=== PATIENT | female | born 1935 | race Caucasian/White ===

== ENCOUNTER 2018-06-28 21:15 | Emergency (ER) | payer MEDICARE ==
[2018-06-28 22:27] LABS: BILIRUBIN,URINE SMALL (NEG); CLARITY,URINE TURBID; COLOR,URINE AMBER; GLUCOSE,URINE NEGATIVE (NEG); NITRITE,URINE NEGATIVE (NEG); PROTEIN,URINE 100 mg/dL (NEG-TRACE)
[2018-06-28 22:34] LABS: WBC,URINE >40 /HPF (0-4)
[2018-06-28 22:35] LABS: BACTERIA,URINE FEW /HPF (0-FEW)
[2018-06-28 22:47] LABS: ADD MAN DIFF? NO; BASO # 0.1 x10^3/uL (0.0-0.2); BASO % 1 % (0-3); EOS # 0.5 x10^3/uL (0.0-0.7); EOS % 5 % (0-3); HEMATOCRIT 41.2 % (36.0-47.0); HEMOGLOBIN 13.5 g/dL (12.0-15.5); LYMPH # 3.1 x10^3/uL (1.0-4.8); LYMPH % 31 % (24-48); MEAN CORPUSCULAR HEMOGLOBIN 25 pg (25-35); MEAN CORPUSCULAR HGB CONC 33 g/dL (31-37); MEAN CORPUSCULAR VOLUME 76 fL (79-100); MONO # 0.6 x10^3/uL (0.0-1.1); MONO % 7 % (0-9); NEUT # 5.6 x10^3uL (1.8-7.7); NEUT % 57 % (31-73); PLATELET COUNT 191 x10^3/uL (140-400); RED CELL DISTRIBUTION WIDTH 18.4 % (11.5-14.5); WHITE BLOOD COUNT 9.9 x10^3/uL (4.0-11.0)
[2018-06-28 23:02] LABS: ANION GAP 11 (6-14); BLOOD UREA NITROGEN 30 mg/dL (7-20); BUN/CREATININE RATIO 30 (6-20); CALCIUM 8.9 mg/dL (8.5-10.1); CARBON DIOXIDE 25 mmol/L (21-32); CHLORIDE 103 mmol/L (98-107); GFR 53.2; GLUCOSE 294 mg/dL (70-99); POTASSIUM 3.8 mmol/L (3.5-5.1); SODIUM 139 mmol/L (136-145)
[2018-06-28] MEDS: IV NORMAL SALINE 500ML BAG 500 ML IV (23:06)
[2018-06-28 23:08] LABS: ALBUMIN 3.1 g/dL (3.4-5.0); ALBUMIN/GLOBULIN RATIO 0.8 (1.0-1.7); ALK PHOS 112 U/L (46-116); ALT (SGPT) 19 U/L (14-59); AST (SGOT) 15 U/L (15-37); TOTAL BILIRUBIN 0.4 mg/dL (0.2-1.0)
== END 2018-06-29 00:45 | disposition home or self-care (01) ==
LOC: ER 06-29 00:45
DX: E86.0 Dehydration (principal); N39.0 Urinary tract infection, site not specified; F03.90 Unspecified dementia, unspecified severity, without behavioral disturbance, psychotic disturbance, mood disturbance, and anxiety; E11.9 Type 2 diabetes mellitus without complications; E78.00 Pure hypercholesterolemia, unspecified; Z88.0 Allergy status to penicillin; Z88.8 Allergy status to other drugs, medicaments and biological substances; Z91.041 Radiographic dye allergy status
CPT/HCPCS: 36415; 80053; 81001; 85025; 96361; 96365; 99284-25; J0690; J7040; P9612

== ENCOUNTER 2019-04-09 12:09 | Inpatient (IN) | payer MEDICARE ==
[~2019-04-09] VITALS: Ht 165.1 cm; Wt 76.7 kg
[~2019-04-09 12:09] MED LIST: ACET500T55 PO; CIPR500T94 PO; CLON0.1T12 PO; DULO30CA2 PO; GLYB5TAB3 PO; INSU100V13 SQ; METF500T16 PO; METO25TA4 PO; OLAN5TAB9 PO; OXYB5TAB7 PO; PRAV20TA2 PO; SERT50TA PO
[2019-04-09] MEDS ORDERED: ONDANSETRON PF 4 MG/2 ML VIAL. IV ONE (12:45)
[2019-04-09] MEDS ORDERED: fentaNYL PF VIAL 100 MCG/2 ML VIAL IV ONE ×2 (12:45→15:30)
[2019-04-09 12:51] LABS: BILIRUBIN,URINE SMALL (NEG); CLARITY,URINE CLEAR; COLOR,URINE AMBER; NITRITE,URINE NEGATIVE (NEG); PH,URINE 5.5; PROTEIN,URINE 100 mg/dL (NEG-TRACE)
[2019-04-09 12:56] LABS: GRANULAR CASTS,URINE OCCASIONAL /HPF; HYALINE CASTS, URINE FEW /HPF; SQUAMOUS EPITHELIAL CELL,UR MOD /LPF
[2019-04-09 12:57] LABS: BACTERIA,URINE 0 /HPF (0-FEW); RBC,URINE OCC /HPF (0-2)
[2019-04-09 13:03] LABS: BASO # 0.1 x10^3/uL (0.0-0.2); BASO % 1 % (0-3); EOS # 0.2 x10^3/uL (0.0-0.7); EOS % 2 % (0-3); HEMATOCRIT 41.7 % (36.0-47.0); HEMOGLOBIN 13.4 g/dL (12.0-15.5); LYMPH # 2.2 x10^3/uL (1.0-4.8); LYMPH % 27 % (24-48); MEAN CORPUSCULAR HEMOGLOBIN 27 pg (25-35); MEAN CORPUSCULAR HGB CONC 32 g/dL (31-37); MEAN CORPUSCULAR VOLUME 83 fL (79-100); MONO # 0.6 x10^3/uL (0.0-1.1); MONO % 7 % (0-9); NEUT # 5.1 x10^3uL (1.8-7.7); NEUT % 63 % (31-73); PLATELET COUNT 194 x10^3/uL (140-400); RED BLOOD COUNT 5.04 x10^6/uL (3.50-5.40); RED CELL DISTRIBUTION WIDTH 15.8 % (11.5-14.5); WHITE BLOOD COUNT 8.1 x10^3/uL (4.0-11.0)
[2019-04-09 13:12] LABS: PROTHROMBIN TIME PATIENT 14.3 SEC (11.7-14.0)
--- NOTE | 2019-04-09 13:14 | EKG ---
[facility] [address] [place] [address] Test Date: 2019-04-09 Test Time: 12:26:50 Pat Name: AALIYAH CROW Department: Room: Gender: F Office Mail Clerk: : 1935 Requested By: ARTUR DELEON Order Number: [id number] Reading MD: Elliot Weaver Measurements Intervals [place] Rate: 83 P: -15 ME: 150 QRS: -59 QRSD: 132 T: -8 QT: 400 QTc: 471 Interpretive Statements SINUS RHYTHM ABNORMAL LEFT AXIS DEVIATION LEFT ANTERIOR FASCICULAR BLOCK RIGHT BUNDLE BRANCH BLOCK BIFASCICULAR BLOCK ABNORMAL ECG Electronically Signed On 05-02-2019 12:05:04 CDT by Elliot Weaver
[2019-04-09 13:15] LABS: CREATININE 0.9 mg/dL (0.6-1.0); GFR 59.9; POTASSIUM 3.9 mmol/L (3.5-5.1)
[2019-04-09 13:22] LABS: ALBUMIN 3.8 g/dL (3.4-5.0); ALBUMIN/GLOBULIN RATIO 1.2 (1.0-1.7); TOTAL BILIRUBIN 0.8 mg/dL (0.2-1.0); TOTAL PROTEIN 7.1 g/dL (6.4-8.2)
--- NOTE | 2019-04-09 13:40 | RAD ---
CHEST AP ONLY Clinical Indication: Code stroke, left arm numbness, seizure Comparison: None. Findings: Portable supine frontal view of the chest was obtained. The cardiomediastinal silhouette is normal. Lungs are clear. There is no pneumothorax but evaluation may be limited with the patient supine. No pleural effusion is appreciated. No acute bone abnormality. Calcific granuloma involves the lateral right upper lung field. Rods are identified involving the upper lumbar spine but are only partially imaged. Degenerative changes are notable involving the lumbar spine. IMPRESSION: No acute cardiopulmonary process. Electronically signed by: Emile Blair MD (04/09/2019 1:37 PM) [id number]
--- NOTE | 2019-04-09 13:42 | RAD ---
Examination: HIP RIGHT 2V WITH PELVIS History: Seizure, hip pain Comparison/Correlation: None Findings: Frontal view pelvis, frontal view right hip, and frog-leg lateral view right hip were obtained. Left hip joint prosthesis is present. Spinal rods involving the low lumbar spine. Laminectomy defects are present involving the very low lumbar spine. Spurring about the right hip is noted. No acute fracture identified. Vascular calcification noted. Impression: No acute process. Consider further evaluation if occult fracture is a persistent concern. Electronically signed by: Emile Blair MD (04/09/2019 1:39 PM) [id number]
--- NOTE | 2019-04-09 13:43 | RAD ---
Examination: KNEE RIGHT 4V History: Right knee pain, seizure Comparison/Correlation: None Findings: Total of 4 images of the right knee were obtained. Right total knee joint prosthesis is present. No loosening. No fracture or bony destruction. Vascular calcification present. Impression: No acute process. Electronically signed by: Emile Blair MD (04/09/2019 1:40 PM) [id number]
--- NOTE | 2019-04-09 13:45 | RAD ---
CT head without contrast dated 04/09/2019. Comparison made to 05/08/2018. CLINICAL INDICATION: Weakness. Seizure. TECHNIQUE: Contiguous axial imaging of the head was performed from skull base to vertex. No contrast administered. One or more of the following individualized dose reduction techniques were utilized for this examination: 1. Automated exposure control 2. Adjustment of the mA and/or kV according to patient size 3. Use of iterative reconstruction technique. FINDINGS: Ventricles and sulci are moderately prominent for age. No midline shift or mass effect. Moderate patchy low density throughout the deep/subcortical periventricular white matter. No hemorrhage or extra-axial collection. Posterior fossa and brainstem unremarkable. Visualized paranasal sinuses and mastoid air cells are clear. Mild mucosal thickening of the ethmoid and sphenoid sinuses. Atherosclerotic calcifications of the parasellar carotids and vertebrobasilar system. IMPRESSION: 1. No evidence of acute intracranial hemorrhage or mass. 2. Moderate chronic small vessel ischemic changes and atrophy, similar to prior study. Electronically signed by: Sagar Wellington MD (04/09/2019 1:42 PM) [id number]
--- NOTE | 2019-04-09 14:56 | PHYS DOC ---
Past Medical History Past Medical History: Dementia, Diabetes-Type II, High Cholesterol, Seizure, UTI Additional Past Medical Histor: DROP FOOT LEFT Past Surgical History: Knee Replacement Additional Past Surgical Histo: BILATERAL KNEE, RIGHT HIP, BACK SX Alcohol Use: None Drug Use: None Adult General Chief Complaint Chief Complaint: WEAKNESS/GENERALIZED HPI HPI Patient is a 83 year old F who presents for gen weakness. She was DC from [facility] rehab yesterday. She is incredibly weak and cannot get around on her own. Her daughter has been taking care of her at home for the last day. She cannot do her ADLs. She also has significant pain and has fallen a couple of times. Denies cp, sob, fevers, cough. Review of Systems Review of Systems Constitutional: Denies fever or chills Eyes: Denies change in visual acuity, redness, or eye pain HENT: Denies nasal congestion or sore throat Respiratory: Denies cough or shortness of breath Cardiovascular: No additional information not addressed in HPI GI: Denies abdominal pain, nausea, vomiting, bloody stools or diarrhea : Denies dysuria or hematuria Musculoskeletal: Denies back pain or joint pain Integument: Denies rash or skin lesions Neurologic: Denies headache, focal weakness or sensory changes All other systems were reviewed and found to be within normal limits, except as documented in this note. Current Medications Current Medications Current Medications Medications (Trade) Dose Ordered Sig/Shreya Start Time Stop Time Status Last Admin Dose Admin Fentanyl Citrate (Fentanyl 2ml Vial) 50 mcg 1X ONCE 04/09/19 12:45 04/09/19 12:56 DC 04/09/19 12:59 50 MCG Ondansetron HCl (Zofran) 4 mg 1X ONCE 04/09/19 12:45 04/09/19 12:46 DC 04/09/19 12:59 4 MG Allergies Allergies Allergies Coded Allergies Type Severity Reaction Last Updated Verified Iodine and Iodide Containing Produc Allergy Intermediate 05/08/18 Yes Penicillins Allergy Intermediate 05/08/18 Yes meperidine Allergy Intermediate 05/08/18 Yes Physical Exam Physical Exam Constitutional: Well developed, well nourished, no acute distress, non-toxic appearance. HENT: Normocephalic, atraumatic, bilateral external ears normal, oropharynx moist, no oral exudates, nose normal. Eyes: PERRLA, EOMI, conjunctiva normal, no discharge. Neck: Normal range of motion, no tenderness, supple, no stridor. Cardiovascular:Heart rate regular rhythm, no murmur Lungs & Thorax: Bilateral breath sounds clear to auscultation Abdomen: Bowel sounds normal, soft, no tenderness, no masses, no pulsatile masses. Skin: Warm, dry, no erythema, no rash. Back: No tenderness, no CVA tenderness. Extremities: No tenderness, no cyanosis, no clubbing, ROM intact, no edema. Neurologic: Alert and oriented X 3, normal motor function, normal sensory function, no focal deficits noted. Psychologic: Affect normal, judgement normal, mood normal. Current Patient Data Vital Signs Vital Signs Date Time Temp Pulse Resp B/P (MAP) Pulse Ox O2 Delivery O2 Flow Rate FiO2 04/09/19 13:00 78 18 98 04/09/19 12:10 97.8 158/86 (110) Room Air 97.8 Lab Values Laboratory Tests Test 04/09/19 12:30 04/09/19 12:45 Urine Collection Type U cath Urine Color Merna Urine Clarity Clear Urine pH 5.5 Urine Specific [place] >=1.030 Urine Protein 100 mg/dL (NEG-TRACE) Urine Glucose (UA) Negative mg/dL (NEG) Urine Ketones (Stick) 40 mg/dL (NEG) Urine Blood Negative (NEG) Urine Nitrite Negative (NEG) Urine Bilirubin Small (NEG) Urine Urobilinogen Dipstick 1.0 mg/dL (0.2 mg/dL) Urine Leukocyte Esterase Small (NEG) Urine RBC Occ /HPF (0-2) Urine WBC 1-4 /HPF (0-4) Urine Squamous Epithelial Cells Mod /LPF Urine Bacteria 0 /HPF (0-FEW) Urine Hyaline Casts Few /HPF Urine Granular Casts Occasional /HPF Urine Mucus Mod /LPF White Blood Count 8.1 x10^3/uL (4.0-11.0) Red Blood Count 5.04 x10^6/uL (3.50-5.40) Hemoglobin 13.4 g/dL (12.0-15.5) Hematocrit 41.7 % (36.0-47.0) Mean Corpuscular Volume 83 fL (79-100) Mean Corpuscular Hemoglobin 27 pg (25-35) Mean Corpuscular Hemoglobin Concent 32 g/dL (31-37) Red Cell Distribution Width 15.8 % (11.5-14.5) H Platelet Count 194 x10^3/uL (140-400) Neutrophils (%) (Auto) 63 % (31-73) Lymphocytes (%) (Auto) 27 % (24-48) Monocytes (%) (Auto) 7 % (0-9) Eosinophils (%) (Auto) 2 % (0-3) Basophils (%) (Auto) 1 % (0-3) Neutrophils # (Auto) 5.1 x10^3uL (1.8-7.7) Lymphocytes # (Auto) 2.2 x10^3/uL (1.0-4.8) Monocytes # (Auto) 0.6 x10^3/uL (0.0-1.1) Eosinophils # (Auto) 0.2 x10^3/uL (0.0-0.7) Basophils # (Auto) 0.1 x10^3/uL (0.0-0.2) Prothrombin Time 14.3 SEC (11.7-14.0) H Prothrombin Time INR 1.1 (0.8-1.1) Sodium Level 143 mmol/L (136-145) Potassium Level 3.9 mmol/L (3.5-5.1) Chloride Level 104 mmol/L (98-107) Carbon Dioxide Level 23 mmol/L (21-32) Anion Gap 16 (6-14) H Blood Urea Nitrogen 21 mg/dL (7-20) H Creatinine 0.9 mg/dL (0.6-1.0) Estimated GFR (Cockcroft-Gault) 59.9 BUN/Creatinine Ratio 23 (6-20) H Glucose Level 118 mg/dL (70-99) H Calcium Level 10.0 mg/dL (8.5-10.1) Total Bilirubin 0.8 mg/dL (0.2-1.0) Aspartate Amino Transferase (AST) 16 U/L (15-37) Alanine Aminotransferase (ALT) 20 U/L (14-59) Alkaline Phosphatase 81 U/L (46-116) Troponin I Quantitative < 0.017 ng/mL (0.000-0.055) OH-Dsp-L-Type Natriuretic Peptide 345 pg/mL (0-449) Total Protein 7.1 g/dL (6.4-8.2) Albumin 3.8 g/dL (3.4-5.0) Albumin/Globulin Ratio 1.2 (1.0-1.7) Laboratory Tests 04/09/19 12:45 Laboratory Tests 04/09/19 12:45 EKG EKG [] Radiology/Procedures Radiology/Procedures [] Course & Med Decision Making Course & Med Decision Making Pertinent Labs and Imaging studies reviewed. (See chart for details) 83 y/o F presents from home for gen weakness after DC from rehab yesterday. EKG: Sinus rhythm 82 bpm, no ST elev or depr, RBBB Labs are reassuring. Admit for observation. Dragon Disclaimer Dragon Disclaimer This electronic medical record was generated, in whole or in part, using a voice recognition dictation system. Departure Departure Impression: Primary Impression: Weakness Disposition: ADMITTED INPATIENT Admitting Physician: Other Condition: GOOD Referrals: AMIRA VERONICA MD (PCP) ARTUR DELEON MD April 09, 2019 14:56
[2019-04-09] MEDS ORDERED: DOCUSATE SODIUM 100 MG CAPSULE. PO PRN (15:15)
[2019-04-09] MEDS ORDERED: HYDROmorphone 2 MG/ML VIAL IV PRN (15:15)
[2019-04-09] MEDS ORDERED: ALBUTEROL SULFATE 2.5 MG/3 ML NEBU. NEB PRN (15:15)
[2019-04-09] MEDS ORDERED: ACETAMINOPHEN 325 MG TABLET. PO PRN (15:15)
[2019-04-09] MEDS ORDERED: DEXTROSE 50% 25 GM / 50ML DISP.SYRIN. IV PRN (15:15)
[2019-04-09] MEDS ORDERED: ONDANSETRON PF 4 MG/2 ML VIAL. IV PRN (15:15)
[2019-04-09] MEDS ORDERED: LORazepam 0.5 MG TABLET PO PRN (15:15)
[2019-04-09] MEDS ORDERED: ZOLPIDEM 5 MG TABLET. PO PRN (15:15)
[2019-04-09] MEDS ORDERED: guaiFENesin ORAL 200 MG/10 ML LIQUID. PO PRN (15:15)
[2019-04-09] MEDS ORDERED: ACETAMINOPHEN 500 MG TABLET PO PRN (15:30)
[2019-04-09] MEDS ORDERED: ENOXAPARIN 40 MG/0.4 ML SYRINGE. SQ SCH (16:00)
[2019-04-09] MEDS ORDERED: INSULIN LISPRO 300 UNITS/3 ML INSULN.PEN. SQ SCH (17:00)
[2019-04-09] MEDS ORDERED: C.DIFF MED SCREEN BY RX. MC ONE (18:15)
[2019-04-09 19:00] VITALS: BP 145/66
[2019-04-09] MEDS ORDERED: MENT118G TP (19:17)
[2019-04-09] MEDS ORDERED: LACT1CAP PO (19:17)
[2019-04-09] MEDS ORDERED: CIPR500T PO (19:17)
[2019-04-09] MEDS ORDERED: LISI10TA2 PO (19:17)
[2019-04-09] MEDS ORDERED: LEVE500T56 PO (19:17)
[2019-04-09] MEDS ORDERED: VIT1TABL32 PO (19:17)
[2019-04-09] MEDS ORDERED: INSU100I13 SQ (19:17)
[2019-04-09] MEDS ORDERED: POLY17PO29 PO (19:17)
--- NOTE | 2019-04-09 19:32 | NUR ---
Pt arrived via gurney with ED transport. A&O X4, VSS. Pt able to move to the bed on her own with very little assistance. Completed admission assessment. Meal tray ordered. Call light within reach. Family at bedside. Will continue to monitor.
--- NOTE | 2019-04-09 20:53 | PDOC1 ---
History and Physical Date of Admission Date of Admission 04/09/2019 Identification/Chief Complaint Chief Complaint Weakness Problems: (1) Weakness Source Source: Caregiver, Chart review, Patient History of Present Illness History of Present Illness Patient is an 83-year-old female with past medical history of dementia who was recently discharged from a rehabilitation facility apparently 2 days ago and was brought by her daughter who reported not being able to care for the mother and reporting that she was not herself. no neurological deficits were evident during my encounter patient is pleasantly laying in the stretcher in no acute distress. History is not relieable since the patient is a poor historian. We will admit for PT eval and possible placement. She denies headache blurred vision no slurred speech, no motor or sensory deficit. she does compalin of feeling cold. no nausea or vomiting no abdominal pain reported, she denies urinary symptoms. ER history as follows: Patient is a 83 year old F who presents for gen weakness. She was DC from [facility] rehab yesterday. She is incredibly weak and cannot get around on her own. Her daughter has been taking care of her at home for the last day. She cannot do her ADLs. She also has significant pain and has fallen a couple of times. Denies cp, sob, fevers, cough. Past Medical History Cardiovascular: HTN Pulmonary: No pertinent hx CENTRAL NERVOUS SYSTEM: Dementia GI: No pertinent hx Heme/Onc: No pertinent hx Hepatobiliary: No pertinent hx Psych: No pertinent hx Rheumatologic: No pertinent hx Infectious disease: Other Past Surgical History Past Surgical History: No pertinent history Family History Family History: No Significant Social History ALCOHOL: none Drugs: None Current Problem List Problem List Problems Medical Problems: (1) Weakness Status: Acute Current Medications Current Medications Current Medications Medications (Trade) Dose Ordered Sig/Shreya Start Time Stop Time Status Last Admin Dose Admin Acetaminophen (Tylenol) 500 mg PRN Q6HRS PRN 04/09/19 15:30 Albuterol Sulfate (Ventolin Neb Soln) 2.5 mg PRN Q4HRS PRN 04/09/19 15:15 Atorvastatin Calcium (Lipitor) 5 mg QHS 04/09/19 21:00 Dextrose (Dextrose 50%-Water Syringe) 12.5 gm PRN Q15MIN PRN 04/09/19 15:15 Docusate Sodium (Colace) 100 mg PRN BID PRN 04/09/19 15:15 Duloxetine HCl (Cymbalta) 30 mg DAILY 04/10/19 09:00 Enoxaparin Sodium (Lovenox 40mg Syringe) 40 mg DAILY 04/09/19 16:00 04/09/19 18:24 40 MG Fentanyl Citrate (Fentanyl 2ml Vial) 50 mcg 1X ONCE 04/09/19 15:30 04/09/19 15:31 DC Guaifenesin (Robitussin) 200 mg PRN Q4HRS PRN 04/09/19 15:15 Hydromorphone HCl (Dilaudid) 1 mg PRN Q2HRS PRN 04/09/19 15:15 04/09/19 15:31 1 MG Insulin Glargine (Lantus) 70 units DAILY 04/10/19 09:00 Insulin Human Lispro (HumaLOG) 0-7 UNITS TIDWMEALS 04/09/19 17:00 Lorazepam (Ativan) 0.5 mg PRN Q4HRS PRN 04/09/19 15:15 Metoprolol Tartrate (Lopressor) 12.5 mg BID 04/09/19 21:00 Olanzapine (ZyPREXA) 2.5 mg QHS 04/09/19 21:00 Ondansetron HCl (Zofran) 4 mg PRN Q4HRS PRN 04/09/19 15:15 Pharmacy Consult (C.diff Med Screen By Rx) 1 each 1X ONCE 04/09/19 18:15 04/09/19 18:16 UNV Sertraline HCl (Zoloft) 50 mg QHS 04/09/19 21:00 Zolpidem Tartrate (Ambien) 5 mg PRN QHS PRN 04/09/19 15:15 Allergies Allergies Allergies Coded Allergies Type Severity Reaction Last Updated Verified Iodine and Iodide Containing Produc Allergy Intermediate 05/08/18 Yes Penicillins Allergy Intermediate 05/08/18 Yes meperidine Allergy Intermediate 05/08/18 Yes ROS Review of System CONSTITUTIONAL: No fever or chills EYES: No recent changes SKIN: No rash or itching CARDIOVASCULAR: No chest pain, syncope, palpitations, or edema RESPIRATORY: No SOB or cough GASTROINTESTINAL: No nausea, vomiting or abdominal pain NEUROLOGICAL: No headaches or weakness ENDOCRINE: No cold or heat intolerance GENITOURINARY: No urgency or frequency of urination MUSCULOSKELETAL: No back pain or joint pain LYMPHATICS: No enlarged lymph nodes PSYCHIATRIC: No anxiety or depression Unreliable Physical Exam Physical Exam GEN.: No apparent distress. Alert and oriented. HEENT: Head is normocephalic, atraumatic NECK: Supple. LUNGS: Clear to auscultation. HEART: RRR, S1, S2 present. systolic murmur with no radaition to carotids 2/6 intensity Peripheral pulses intact ABDOMEN: Soft, nontender. Positive bowel sounds. EXTREMITIES: Without any cyanosis. NEUROLOGIC: Normal speech, normal tone PSYCHIATRIC: Normal affect, normal mood. SKIN: No ulcerations Vitals Vitals Vital Signs Date Time Temp Pulse Resp B/P (MAP) Pulse Ox O2 Delivery O2 Flow Rate FiO2 04/09/19 19:24 Room Air 04/09/19 17:19 96 04/09/19 16:00 79 20 04/09/19 12:10 97.8 158/86 (110) 97.8 Labs Labs Laboratory Tests Test 04/09/19 12:30 04/09/19 12:45 04/09/19 17:09 Urine Collection Type U cath Urine Color Merna Urine Clarity Clear Urine pH 5.5 Urine Specific [place] >=1.030 Urine Protein 100 mg/dL (NEG-TRACE) Urine Glucose (UA) Negative mg/dL (NEG) Urine Ketones (Stick) 40 mg/dL (NEG) Urine Blood Negative (NEG) Urine Nitrite Negative (NEG) Urine Bilirubin Small (NEG) Urine Urobilinogen Dipstick 1.0 mg/dL (0.2 mg/dL) Urine Leukocyte Esterase Small (NEG) Urine RBC Occ /HPF (0-2) Urine WBC 1-4 /HPF (0-4) Urine Squamous Epithelial Cells Mod /LPF Urine Bacteria 0 /HPF (0-FEW) Urine Hyaline Casts Few /HPF Urine Granular Casts Occasional /HPF Urine Mucus Mod /LPF White Blood Count 8.1 x10^3/uL (4.0-11.0) Red Blood Count 5.04 x10^6/uL (3.50-5.40) Hemoglobin 13.4 g/dL (12.0-15.5) Hematocrit 41.7 % (36.0-47.0) Mean Corpuscular Volume 83 fL (79-100) Mean Corpuscular Hemoglobin 27 pg (25-35) Mean Corpuscular Hemoglobin Concent 32 g/dL (31-37) Red Cell Distribution Width 15.8 % (11.5-14.5) Platelet Count 194 x10^3/uL (140-400) Neutrophils (%) (Auto) 63 % (31-73) Lymphocytes (%) (Auto) 27 % (24-48) Monocytes (%) (Auto) 7 % (0-9) Eosinophils (%) (Auto) 2 % (0-3) Basophils (%) (Auto) 1 % (0-3) Neutrophils # (Auto) 5.1 x10^3uL (1.8-7.7) Lymphocytes # (Auto) 2.2 x10^3/uL (1.0-4.8) Monocytes # (Auto) 0.6 x10^3/uL (0.0-1.1) Eosinophils # (Auto) 0.2 x10^3/uL (0.0-0.7) Basophils # (Auto) 0.1 x10^3/uL (0.0-0.2) Prothrombin Time 14.3 SEC (11.7-14.0) Prothromb Time International Ratio 1.1 (0.8-1.1) Sodium Level 143 mmol/L (136-145) Potassium Level 3.9 mmol/L (3.5-5.1) Chloride Level 104 mmol/L (98-107) Carbon Dioxide Level 23 mmol/L (21-32) Anion Gap 16 (6-14) Blood Urea Nitrogen 21 mg/dL (7-20) Creatinine 0.9 mg/dL (0.6-1.0) Estimated GFR (Cockcroft-Gault) 59.9 BUN/Creatinine Ratio 23 (6-20) Glucose Level 118 mg/dL (70-99) Calcium Level 10.0 mg/dL (8.5-10.1) Total Bilirubin 0.8 mg/dL (0.2-1.0) Aspartate Amino Transf (AST/SGOT) 16 U/L (15-37) Alanine Aminotransferase (ALT/SGPT) 20 U/L (14-59) Alkaline Phosphatase 81 U/L (46-116) Troponin I Quantitative < 0.017 ng/mL (0.000-0.055) RD-Cdi-P-Type Natriuretic Peptide 345 pg/mL (0-449) Total Protein 7.1 g/dL (6.4-8.2) Albumin 3.8 g/dL (3.4-5.0) Albumin/Globulin Ratio 1.2 (1.0-1.7) Glucose (Fingerstick) 91 mg/dL (70-99) Laboratory Tests Test 04/09/19 12:30 04/09/19 12:45 04/09/19 17:09 Urine Collection Type U cath Urine Color Merna Urine Clarity Clear Urine pH 5.5 Urine Specific [place] >=1.030 Urine Protein 100 mg/dL (NEG-TRACE) Urine Glucose (UA) Negative mg/dL (NEG) Urine Ketones (Stick) 40 mg/dL (NEG) Urine Blood Negative (NEG) Urine Nitrite Negative (NEG) Urine Bilirubin Small (NEG) Urine Urobilinogen Dipstick 1.0 mg/dL (0.2 mg/dL) Urine Leukocyte Esterase Small (NEG) Urine RBC Occ /HPF (0-2) Urine WBC 1-4 /HPF (0-4) Urine Squamous Epithelial Cells Mod /LPF Urine Bacteria 0 /HPF (0-FEW) Urine Hyaline Casts Few /HPF Urine Granular Casts Occasional /HPF Urine Mucus Mod /LPF White Blood Count 8.1 x10^3/uL (4.0-11.0) Red Blood Count 5.04 x10^6/uL (3.50-5.40) Hemoglobin 13.4 g/dL (12.0-15.5) Hematocrit 41.7 % (36.0-47.0) Mean Corpuscular Volume 83 fL (79-100) Mean Corpuscular Hemoglobin 27 pg (25-35) Mean Corpuscular Hemoglobin Concent 32 g/dL (31-37) Red Cell Distribution Width 15.8 % (11.5-14.5) Platelet Count 194 x10^3/uL (140-400) Neutrophils (%) (Auto) 63 % (31-73) Lymphocytes (%) (Auto) 27 % (24-48) Monocytes (%) (Auto) 7 % (0-9) Eosinophils (%) (Auto) 2 % (0-3) Basophils (%) (Auto) 1 % (0-3) Neutrophils # (Auto) 5.1 x10^3uL (1.8-7.7) Lymphocytes # (Auto) 2.2 x10^3/uL (1.0-4.8) Monocytes # (Auto) 0.6 x10^3/uL (0.0-1.1) Eosinophils # (Auto) 0.2 x10^3/uL (0.0-0.7) Basophils # (Auto) 0.1 x10^3/uL (0.0-0.2) Prothrombin Time 14.3 SEC (11.7-14.0) Prothromb Time International Ratio 1.1 (0.8-1.1) Sodium Level 143 mmol/L (136-145) Potassium Level 3.9 mmol/L (3.5-5.1) Chloride Level 104 mmol/L (98-107) Carbon Dioxide Level 23 mmol/L (21-32) Anion Gap 16 (6-14) Blood Urea Nitrogen 21 mg/dL (7-20) Creatinine 0.9 mg/dL (0.6-1.0) Estimated GFR (Cockcroft-Gault) 59.9 BUN/Creatinine Ratio 23 (6-20) Glucose Level 118 mg/dL (70-99) Calcium Level 10.0 mg/dL (8.5-10.1) Total Bilirubin 0.8 mg/dL (0.2-1.0) Aspartate Amino Transf (AST/SGOT) 16 U/L (15-37) Alanine Aminotransferase (ALT/SGPT) 20 U/L (14-59) Alkaline Phosphatase 81 U/L (46-116) Troponin I Quantitative < 0.017 ng/mL (0.000-0.055) VN-Pmd-Q-Type Natriuretic Peptide 345 pg/mL (0-449) Total Protein 7.1 g/dL (6.4-8.2) Albumin 3.8 g/dL (3.4-5.0) Albumin/Globulin Ratio 1.2 (1.0-1.7) Glucose (Fingerstick) 91 mg/dL (70-99) VTE Prophylaxis Ordered VTE Prophylaxis Devices: Yes VTE Pharmacological Prophylaxi: Yes Assessment/Plan Assessment/Plan unsteady gait unable to care for herself advanced age family requesting placement essential hypertension dyslipidemia dm tyupe 2 insulin requring. Plan: will request PT eval will reassess in the am resume home meds further recommendations based on clinical course. accucheks ac and hs DVt prophylaxis: SAUNDRA PENNY MD April 09, 2019 20:53
[2019-04-09] MEDS: METOPROLOL TART IMMED RELEASE 25 MG TABLET. PO SCH (21:00)
--- NOTE | 2019-04-09 21:05 | NUR ---
Dr. Mccauley notified of pt's admission and orders rcvd to restart current home medications. Pt resting in bed, will continue to monitor.
[2019-04-09] MEDS ORDERED: METHYL SALICYLATE/MENTHOL TOPICAL OINTMENT 29GM TUBE. TP PRN (21:15)
[2019-04-09] MEDS: levETIRAcetam 500 MG TABLET PO SCH (22:09)
[2019-04-09] MEDS: OLANZapine 2.5 MG TABLET PO SCH (22:09)
[2019-04-09] MEDS: SERTRALINE 50 MG TABLET. PO SCH (22:10)
[2019-04-09] MEDS: ATORVASTATIN CALCIUM 10 MG TABLET. PO SCH (22:10)
[2019-04-09] MEDS: MULTIVITAMIN I-VITE TABLET. PO SCH (22:11)
[2019-04-09] MEDS ORDERED: INSULIN LISPRO 300 UNITS/3 ML INSULN.PEN. SQ ONE (22:15)
[2019-04-09] MEDS: INSULIN GLARGINE 300 UNITS/3 ML INSULN.PEN. SQ SCH (22:15)
[2019-04-09 23:00] VITALS: BP 121/84
[2019-04-10 03:00] VITALS: BP 120/89
--- NOTE | 2019-04-10 04:30 | NUR ---
Purewick external catheter placed at this time, pt tolerated well and will continue to monitor.
[2019-04-10 07:00] VITALS: BP 149/66
--- NOTE | 2019-04-10 08:29 | PDOC ---
Provider Note Provider Note vss, labs ok, in for placement- check a1c, rest of meds same AMIRA VERONICA MD April 10, 2019 08:29
[2019-04-10] MEDS ORDERED: INSULIN GLARGINE 300 UNITS/3 ML INSULN.PEN. SQ SCH (09:00)
[2019-04-10] MEDS ORDERED: CIPROFLOXACIN HCL 250 MG TABLET. PO SCH (09:00)
[2019-04-10] MEDS: POLYETHYLENE GLYCOL 3350 17 GM PACKET. PO SCH (09:00)
[2019-04-10] MEDS: DULoxetine HCL 30 MG CAPSULE.DR PO SCH (09:42)
[2019-04-10] MEDS: LACTOBACILLUS RHAMNOSUS GG 1 CAPSULE. PO SCH (09:42)
[2019-04-10] MEDS: levETIRAcetam 500 MG TABLET PO SCH ×2 (09:42→21:21)
[2019-04-10] MEDS: LISINOPRIL 10 MG TABLET PO SCH (09:43)
[2019-04-10] MEDS: METOPROLOL TART IMMED RELEASE 25 MG TABLET. PO SCH ×2 (09:45→21:20)
--- NOTE | 2019-04-10 09:45 | NUR ---
wound care patient seen per wound care consult. patient has redness in bilateral groins/upper thighs- recommendations of Calazime cream, prn. applied Calazime cream at this time. patient assessed from head to toe- no wounds noted at this time. wound care is signing off- please re-consult wound care if the integumentary assessment changes. notified CHELSEA Black.
[2019-04-10 11:00] VITALS: BP 130/62
[2019-04-10 15:00] VITALS: BP 134/56
--- NOTE | 2019-04-10 15:46 | NUR ---
SW following for discharge planning. Discussed with RN, pt is from home with daughter, has had Michelle in the past and was recently at [facility]. Per Michelle TRAN, Lo, pt has also been to [facility]. OT recommending SNU, SW awaiting PT recommendation. SW to contact pt's daughter to discuss discharge planning. SW will continue to follow.
[2019-04-10 19:20] VITALS: BP 101/46
[2019-04-10] MEDS: MULTIVITAMIN I-VITE TABLET. PO SCH (21:19)
[2019-04-10] MEDS: ATORVASTATIN CALCIUM 10 MG TABLET. PO SCH (21:21)
[2019-04-10] MEDS: SERTRALINE 50 MG TABLET. PO SCH (21:21)
[2019-04-10] MEDS: OLANZapine 2.5 MG TABLET PO SCH (21:21)
[2019-04-10] MEDS: INSULIN GLARGINE 300 UNITS/3 ML INSULN.PEN. SQ SCH (21:29)
[2019-04-10 23:27] VITALS: BP 128/56
[2019-04-11 03:13] VITALS: BP 120/43
[2019-04-11 07:00] VITALS: BP 148/64
--- NOTE | 2019-04-11 07:55 | PDOC ---
Provider Note Provider Note vss, no temp, glucose up so will inc lantus- placement pending AMIRA VERONICA MD April 11, 2019 07:54
[2019-04-11] MEDS ORDERED: INSULIN GLARGINE 300 UNITS/3 ML INSULN.PEN. SQ ONE (08:00)
[2019-04-11] MEDS: METOPROLOL TART IMMED RELEASE 25 MG TABLET. PO SCH ×2 (08:41→20:10)
[2019-04-11] MEDS: LACTOBACILLUS RHAMNOSUS GG 1 CAPSULE. PO SCH (08:41)
[2019-04-11] MEDS: POLYETHYLENE GLYCOL 3350 17 GM PACKET. PO SCH (08:42)
[2019-04-11] MEDS: LISINOPRIL 10 MG TABLET PO SCH (08:42)
[2019-04-11] MEDS: DULoxetine HCL 30 MG CAPSULE.DR PO SCH (08:44)
[2019-04-11] MEDS: levETIRAcetam 500 MG TABLET PO SCH ×2 (08:44→20:10)
[2019-04-11 11:00] VITALS: BP 126/76
[2019-04-11 11:17] LABS: HEMOGLOBIN A1C 7.9 % (4.8-5.6)
--- NOTE | 2019-04-11 14:11 | NUR ---
SW following for discharge planning. Discussed with RN, SW left voicemail for pt's daughter, Sarah ([phone]), requesting a call back. SW requested RN to notify SW when family came by to see pt. SANDY will continue to follow.
[2019-04-11 15:00] VITALS: BP 122/48
--- NOTE | 2019-04-11 15:27 | NUR ---
SW following for discharge planning. Pt's daughter returned SW phone call. Pt's daughter visited [facility] last night and is looking at [facility] tomorrow (04/12/19). Pt had discharged from [facility] on 12/12/18 and was at [facility] from 03/26/19 to 04/08/19. PT/OT recommending SNU. SW trying to determine if pt has any SNU days left. SW will continue to follow.
[2019-04-11 19:00] VITALS: BP 154/68
[2019-04-11] MEDS: ATORVASTATIN CALCIUM 10 MG TABLET. PO SCH (20:09)
[2019-04-11] MEDS: SERTRALINE 50 MG TABLET. PO SCH (20:09)
[2019-04-11] MEDS: MULTIVITAMIN I-VITE TABLET. PO SCH (20:09)
[2019-04-11] MEDS: OLANZapine 2.5 MG TABLET PO SCH (20:10)
[2019-04-11] MEDS ORDERED: INSULIN GLARGINE 300 UNITS/3 ML INSULN.PEN. SQ SCH (21:00)
[2019-04-11 23:00] VITALS: BP 132/69
[2019-04-12 03:00] VITALS: BP 146/67
[2019-04-12 07:00] VITALS: BP 177/69
[2019-04-12] MEDS: POLYETHYLENE GLYCOL 3350 17 GM PACKET. PO SCH (09:29)
[2019-04-12] MEDS: levETIRAcetam 500 MG TABLET PO SCH ×2 (09:29→20:49)
[2019-04-12] MEDS: LISINOPRIL 10 MG TABLET PO SCH (09:32)
[2019-04-12] MEDS: LACTOBACILLUS RHAMNOSUS GG 1 CAPSULE. PO SCH (09:32)
[2019-04-12] MEDS: METOPROLOL TART IMMED RELEASE 25 MG TABLET. PO SCH ×2 (09:33→20:49)
[2019-04-12] MEDS: DULoxetine HCL 30 MG CAPSULE.DR PO SCH (09:33)
[2019-04-12 11:00] VITALS: BP 124/68
[2019-04-12 15:00] VITALS: BP 125/54
--- NOTE | 2019-04-12 18:50 | NUR ---
1650 - Dinner time blood sugar 305, no sliding scale orders available, Dr Mccauley paged. 1849 - Dr Mccauley called back, orders received for Lantus 24 units now and then again at bedtime plus Lantus 10 units at lunch starting tomorrow.
[2019-04-12 19:00] VITALS: BP 132/56
[2019-04-12] MEDS: ATORVASTATIN CALCIUM 10 MG TABLET. PO SCH (20:48)
[2019-04-12] MEDS: MULTIVITAMIN I-VITE TABLET. PO SCH (20:48)
[2019-04-12] MEDS: SERTRALINE 50 MG TABLET. PO SCH (20:49)
[2019-04-12] MEDS: OLANZapine 2.5 MG TABLET PO SCH (20:49)
[2019-04-12] MEDS: INSULIN GLARGINE 300 UNITS/3 ML INSULN.PEN. SQ SCH (20:55)
[2019-04-12] MEDS ORDERED: INSULIN GLARGINE 300 UNITS/3 ML INSULN.PEN. SQ SCH (21:00)
[2019-04-12 23:00] VITALS: BP 146/67
--- NOTE | 2019-04-12 23:12 | PN ---
DATE: 04/12/2019 SUBJECTIVE: The patient is awake, alert, has just finished breakfast. Denies any significant complaints. Medications were reviewed. OBJECTIVE: VITAL SIGNS: Stable. She is afebrile. CHEST: Clear. HEART: Regular. ABDOMEN: Benign. LABORATORY DATA: Sugar this morning was 67, have been anywhere from 130-250 in the last 24 hours. Hip and pelvic fractures were negative on admission. Head CT showed only chronic changes on admission. Chest x-ray on admission showed no acute cardiopulmonary process. Right knee films showed no acute process in addition. Placement is planned at this point at the time of discharge and is underway for the same. Lantus was increased to 30 last night and I will back off a little bit because of the lower blood sugar this morning. IMPRESSION: 1. Dementia. 2. Unsteady gait with history of falls. 3. Family requesting placement. 4. Type 2 diabetes, insulin requiring. 5. Hypertension. PLAN: Continue present therapy other than backing off of Lantus just a little bit, otherwise, same with placement at the time of discharge. ROSA ESPOSITO MD DR: AIXA/chip JOB#: [id number] / [id number]
[2019-04-13 03:00] VITALS: BP 142/63
[2019-04-13 07:00] VITALS: BP 176/76
[2019-04-13] MEDS: DULoxetine HCL 30 MG CAPSULE.DR PO SCH (09:00)
[2019-04-13 09:41] LABS: BASO % 1 % (0-3); EOS # 0.4 x10^3/uL (0.0-0.7); EOS % 6 % (0-3); HEMATOCRIT 42.4 % (36.0-47.0); HEMOGLOBIN 13.8 g/dL (12.0-15.5); LYMPH # 1.7 x10^3/uL (1.0-4.8); LYMPH % 26 % (24-48); MEAN CORPUSCULAR HEMOGLOBIN 27 pg (25-35); MEAN CORPUSCULAR HGB CONC 33 g/dL (31-37); MEAN CORPUSCULAR VOLUME 84 fL (79-100); MONO # 0.5 x10^3/uL (0.0-1.1); MONO % 8 % (0-9); NEUT # 3.9 x10^3uL (1.8-7.7); NEUT % 60 % (31-73); PLATELET COUNT 150 x10^3/uL (140-400); RED BLOOD COUNT 5.08 x10^6/uL (3.50-5.40); RED CELL DISTRIBUTION WIDTH 15.8 % (11.5-14.5); WHITE BLOOD COUNT 6.5 x10^3/uL (4.0-11.0)
[2019-04-13 09:46] LABS: CREATININE 0.7 mg/dL (0.6-1.0); GFR 80.1; POTASSIUM 4.1 mmol/L (3.5-5.1)
[2019-04-13] MEDS: POLYETHYLENE GLYCOL 3350 17 GM PACKET. PO SCH (09:46)
[2019-04-13] MEDS: levETIRAcetam 500 MG TABLET PO SCH ×2 (09:47→20:12)
[2019-04-13] MEDS: LACTOBACILLUS RHAMNOSUS GG 1 CAPSULE. PO SCH (09:47)
[2019-04-13] MEDS: METOPROLOL TART IMMED RELEASE 25 MG TABLET. PO SCH ×2 (09:48→20:13)
[2019-04-13] MEDS: LISINOPRIL 10 MG TABLET PO SCH (09:49)
[2019-04-13 11:00] VITALS: BP 162/86
[2019-04-13] MEDS: INSULIN GLARGINE 300 UNITS/3 ML INSULN.PEN. SQ SCH ×2 (13:07→20:52)
[2019-04-13 15:00] VITALS: BP 121/57
[2019-04-13 19:48] VITALS: BP 131/65
[2019-04-13] MEDS: OLANZapine 2.5 MG TABLET PO SCH (20:12)
[2019-04-13] MEDS: MULTIVITAMIN I-VITE TABLET. PO SCH (20:12)
[2019-04-13] MEDS: ATORVASTATIN CALCIUM 10 MG TABLET. PO SCH (20:13)
[2019-04-13] MEDS: SERTRALINE 50 MG TABLET. PO SCH (20:14)
--- NOTE | 2019-04-13 23:15 | PN ---
DATE: 04/13/2019 LOCATION: Room 436. SUBJECTIVE: The patient is awake, alert and pleasant. Once again, denies complaints. OBJECTIVE: VITAL SIGNS: Stable. She is afebrile. Sugars are variable, being anywhere from 86 this morning up to as high as 305 at supper last night. CHEST: Clear. HEART: Regular. ABDOMEN: Benign. NEUROLOGIC: She is pleasantly confused. IMPRESSION: 1. Dementia. 2. Unsteady gait with history of falls. 3. Family requesting placement. 4. Type 2 diabetes, insulin requiring. 5. Hypertension. PLAN: Continue present therapy. We will plan on, at this point in time, placement per social services designee, likely first of the week. ROSA ESPOSITO MD DR: AIXA/chip JOB#: [id number] / [id number]
[2019-04-13 23:18] VITALS: BP 144/56
[2019-04-14 03:35] VITALS: BP 163/77
[2019-04-14 07:00] VITALS: BP 165/65
--- NOTE | 2019-04-14 08:13 | PDOC ---
Provider Note Provider Note vss, no temp- alert , glucose labile awaits placement- lantus added,a1c added AMIRA VERONICA MD April 14, 2019 08:13
--- NOTE | 2019-04-14 09:00 | NUR ---
Pt takes daily Miralax and so far has not had a BM since 04/09. Abdomen is soft, non-tender and Pt denies any discomfort or feeling or constipation. No additional medication needed at this time per Dr Mccauley.
[2019-04-14] MEDS: POLYETHYLENE GLYCOL 3350 17 GM PACKET. PO SCH (09:57)
[2019-04-14] MEDS: metFORMIN 500 MG TABLET PO SCH ×2 (09:58→17:14)
[2019-04-14] MEDS: LACTOBACILLUS RHAMNOSUS GG 1 CAPSULE. PO SCH (09:58)
[2019-04-14] MEDS: LISINOPRIL 10 MG TABLET PO SCH (09:58)
[2019-04-14] MEDS: levETIRAcetam 500 MG TABLET PO SCH ×2 (09:58→21:13)
[2019-04-14] MEDS: DULoxetine HCL 30 MG CAPSULE.DR PO SCH (09:58)
[2019-04-14] MEDS: METOPROLOL TART IMMED RELEASE 25 MG TABLET. PO SCH ×2 (09:59→21:00)
[2019-04-14 11:00] VITALS: BP 108/60
--- NOTE | 2019-04-14 11:12 | NUR ---
SANDY following for discharge planning. Discussed with RN. PT/OT recommending SNU. SANDY spoke with pt's dtr, Sarah this morning, she would like referral sent to [facility] (ph: [phone], fax: [phone]). SANDY phoned and faxed referral, Elana from [facility] will come by to visit pt today, [facility] advising if pt will have any co pays. SANDY will continue to follow.
[2019-04-14] MEDS: INSULIN GLARGINE 300 UNITS/3 ML INSULN.PEN. SQ SCH ×2 (12:49→21:18)
[2019-04-14 15:00] VITALS: BP 107/51
--- NOTE | 2019-04-14 15:42 | NUR ---
Pt has been accepted at [facility]. Dr. Mccauley to complete the discharge paperwork and sign with the order for SNU less than 30 days: YES. [facility] cannot accept pt if this is not signed by the physician. RN notified. SW will continue to follow.
--- NOTE | 2019-04-14 18:50 | NUR ---
Dr Mccauley paged earlier this afternoon regarding request from [facility] medical representative to inquire about Dx for Zyprexa since she could not find one and facility needs a Dx in order to continue this medication. Dr Mccauley called later on, orders received to d/c Zyprexa. This nurse mentioned to Dr Mccauley that if he was not able to complete discharge on the system, his signature was required on the paper medication reconciliation form. Dr Mccauley stated he will address that tomorrow.
[2019-04-14 19:00] VITALS: BP 109/56
[2019-04-14] MEDS: MULTIVITAMIN I-VITE TABLET. PO SCH (21:12)
[2019-04-14] MEDS: ATORVASTATIN CALCIUM 10 MG TABLET. PO SCH (21:13)
[2019-04-14] MEDS: SERTRALINE 50 MG TABLET. PO SCH (21:13)
[2019-04-14 23:00] VITALS: BP 140/62
[2019-04-15 07:00] VITALS: BP 187/90
--- NOTE | 2019-04-15 08:25 | PDOC ---
Provider Note Provider Note [id number] AMIRA VERONICA MD April 15, 2019 08:25
[2019-04-15] MEDS: levETIRAcetam 500 MG TABLET PO SCH (09:20)
[2019-04-15] MEDS: LACTOBACILLUS RHAMNOSUS GG 1 CAPSULE. PO SCH (09:21)
[2019-04-15] MEDS: DULoxetine HCL 30 MG CAPSULE.DR PO SCH (09:24)
[2019-04-15] MEDS: METOPROLOL TART IMMED RELEASE 25 MG TABLET. PO SCH (09:24)
[2019-04-15] MEDS: metFORMIN 500 MG TABLET PO SCH (09:25)
[2019-04-15 09:28] VITALS: BP 187/90
[2019-04-15] MEDS: LISINOPRIL 10 MG TABLET PO SCH (09:28)
[2019-04-15] MEDS: POLYETHYLENE GLYCOL 3350 17 GM PACKET. PO SCH (09:28)
--- NOTE | 2019-04-15 09:48 | DS ---
DATE OF DISCHARGE: 04/15/2019 HOSPITAL SUMMARY: The patient was brought in after one day out of rehab, from [place] with family unable to care for her, needing outside placement. CBC, chemistry profile and urinalysis were unremarkable. Her hemoglobin A1c was reasonable at 7.9. X-rays of her knee, chest and head were unremarkable as well. She was maintained on same medications and her Zyprexa was stopped, which she had been on for some years because of drowsiness and she was tolerating that well. She was transferred to outside facility at this time for continued rehab and support. FINAL DIAGNOSES: 1. Inability for self-care. 2. Insulin-dependent diabetes. OPERATIONS, PROCEDURES, COMPLICATIONS, AND CONSULTATIONS: None. DISPOSITION: All meds remain the same except she is off Zyprexa. Activity as tolerated. She remains a full code per her family's request. AMIRA VERONICA MD DR: RAJIV/chip JOB#: [id number] / [id number]
--- NOTE | 2019-04-15 11:32 | NUR ---
SW following for discharge planning. Discussed with RN, pt discharging today to [facility] at 1230. SW phoned pt's dtrSarah to advise of discharge and discuss choice and rights forms, Sarah reported pt can sign them herself. SW attempted to meet with pt on two occasions and was unable to wake pt. SW had pt's dtrSarah give verbal permission to sign over the phone. RN notified. Placed on chart. No further SW needs.
--- NOTE | 2019-04-15 12:58 | NUR ---
Pt was discharged to [facility] at 1230 today in stable condition with all personal items. Report called into [facility], packet given to facility transportation personnel, all pertinent information faxed to [facility]. Pt was escorted via WC and driven by van to [facility] by facility transportation personnel.
== END 2019-04-15 12:30 | DRG 948 ==
LOC: ER 12:09 → 4 NORTH 14:51
PROVIDERS: ADMIT Family Medicine; ATTEND Family Medicine
DX: R53.1 Weakness (principal); R26.81 Unsteadiness on feet; I10 Essential (primary) hypertension; E78.5 Hyperlipidemia, unspecified; E11.9 Type 2 diabetes mellitus without complications; F03.90 Unspecified dementia, unspecified severity, without behavioral disturbance, psychotic disturbance, mood disturbance, and anxiety; E78.00 Pure hypercholesterolemia, unspecified; Z96.659 Presence of unspecified artificial knee joint; Z79.4 Long term (current) use of insulin; Z91.81 History of falling; Z88.0 Allergy status to penicillin; Z88.8 Allergy status to other drugs, medicaments and biological substances; Z91.041 Radiographic dye allergy status
CPT/HCPCS: 36415; 70450; 71045; 73502; 73564; 80048; 80053; 81001; 82962; 83036; 83880; 84484; 85025; 85610; 93005; 94760; 96374; J1170; J1650; J1815; J2405; J3010; 97110; 97116; 97530; 97535; 99285-25